=== PATIENT | female | born 1960 | race American Indian/Alaskan Native ===

== ENCOUNTER 2017-09-25 17:56 | Emergency (ER) | payer OTHER ==
[2017-09-25] MEDS ORDERED: MOTRIN PO ONE (18:32)
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
[2017-09-25] MEDS ORDERED: MOTRIN ONE (20:47)
[2017-09-25 20:57] VITALS: BP 136/72
== END 2017-09-25 20:54 | disposition home or self-care (01) ==
LOC: ED 17:56
DX: M79.1 Myalgia (principal); M54.6 Pain in thoracic spine; M54.5 Low back pain; I10 Essential (primary) hypertension; V49.49XA Driver injured in collision with other motor vehicles in traffic accident, initial encounter; X58.XXXA Exposure to other specified factors, initial encounter; Y93.89 Activity, other specified; Y92.89 Other specified places as the place of occurrence of the external cause; Y99.8 Other external cause status
CPT/HCPCS: 72040; 72070; 72100